=== PATIENT | female | born 1980 | race Asian ===

== ENCOUNTER 2020-02-25 11:59 | Inpatient (IN) ==
[2020-02-25] MEDS ORDERED: Lactated Ringers 1000 ml BAG 1,000 ML IV ONE ×2 (13:20→22:53)
[2020-02-25 13:55] LABS: ABS Lymphocytes 1.7 10^3/ul (1.0-4.8); ABS Monocytes 0.5 10^3/ul (0-0.8); ABS Neutrophils 7.5 10^3/ul (1.5-7.7); Eosinophil % 0.1 %; Hematocrit 42 % (35-47); Hemoglobin 14.4 g/dL (12.0-16.0); Lymphocyte % 17.1 %; Mean Corpuscular HGB Conc 34 g/dL (31-36); Mean Corpuscular Hemoglobin 28 pg (27-31); Mean Corpuscular Volume 82 fL (80-97); Mean Platelet Volume 8.2 fL (7.4-10.4); Nucleated Red Blood Cells % 0.1; Platelet Count 224 10^3/uL (150-450); Red Blood Count 5.07 10^6 /uL (3.70-4.87); Red Cell Distribution Width 17 % (10-15); White Blood Count 9.8 10^3/uL (3.5-10.8)
[2020-02-25] MEDS ORDERED: Oxytocin in LR 20 UNITS/1,000 ML BAG IVPB SCH (14:00)
[2020-02-25] MEDS: Lactated Ringers 1000 ml BAG 1,000 ML IV SCH ×2 (14:03→18:35)
[2020-02-25 18:06] LABS: Urine Benzodiazepine Screen None Detected (None Detect); Urine Cannabinoids Screen None Detected (None Detect); Urine Opiates Screen None Detected (None Detect)
[2020-02-25] MEDS ORDERED: OBEPIDURAL 250 ML EPIDURAL ONE (22:08)
[2020-02-25] MEDS ORDERED: Lactated Ringers 1000 ml BAG 500 ML IV PRN ×2 (22:53)
[2020-02-25] MEDS ORDERED: Sodium Citrate/Citric Acid LIQ 15 ML UDC PO PRN (22:53)
[2020-02-25] MEDS ORDERED: Phenylephrine 40 mcg/mL 10mL (400mcg) SYRINGE IV PUSH PRN ×2 (22:53)
[2020-02-25] MEDS ORDERED: OBEPIDURAL 250 ML EPIDURAL SCH (23:00)
[2020-02-25] MEDS ORDERED: Lactated Ringers 1000 ml BAG 1,000 ML IV SCH ×2 (23:00)
[2020-02-26] MEDS ORDERED: Glycerin ADULT 2.4 gm SUPP PR PRN (04:18)
[2020-02-26] MEDS ORDERED: Witch Hazel PAD JAR TOPICAL PRN (04:18)
[2020-02-26] MEDS ORDERED: Dibucaine 1% OINT 28.35 GM TUBE PR PRN (04:18)
[2020-02-26] MEDS ORDERED: Oxytocin in LR 20 UNITS/1,000 ML BAG IVPB SCH (05:00)
[2020-02-26] MEDS ORDERED: Witch Hazel PAD JAR ONE (05:43)
[2020-02-26] MEDS ORDERED: Dibucaine 1% OINT 28.35 GM TUBE ONE (05:43)
[2020-02-26] MEDS ORDERED: Lidocaine 1% VIAL 10 MG/ML VIAL ONE (06:39)
[2020-02-27 07:20] LABS: ABS Eosinophils 0.1 10^3/ul (0-0.6); ABS Lymphocytes 2.9 10^3/ul (1.0-4.8); ABS Monocytes 1.1 10^3/ul (0-0.8); ABS Neutrophils 13.7 10^3/ul (1.5-7.7); Eosinophil % 0.3 %; Hematocrit 31 % (35-47); Hemoglobin 10.5 g/dL (12.0-16.0); Lymphocyte % 16.5 %; Mean Corpuscular HGB Conc 34 g/dL (31-36); Mean Corpuscular Hemoglobin 28 pg (27-31); Mean Corpuscular Volume 82 fL (80-97); Mean Platelet Volume 9.1 fL (7.4-10.4); Platelet Count 172 10^3/uL (150-450); Red Blood Count 3.73 10^6 /uL (3.70-4.87); Red Cell Distribution Width 16 % (10-15); White Blood Count 17.9 10^3/uL (3.5-10.8)
[2020-02-27] MEDS: Psyllium PAK PO SCH (21:14)
[2020-02-28 07:28] VITALS: BP 90/65
[2020-02-28] MEDS: Psyllium PAK PO SCH (08:29)
== END 2020-02-28 14:30 | disposition home or self-care (01) | DRG 560 ==
LOC: MCHOBOUT 11:59 → MCHOB 13:47
PROVIDERS: ADMIT Midwife; ATTEND Midwife